=== PATIENT | male | born 1955 | race Caucasian/White ===

== ENCOUNTER → 2020-08-02 | Outpatient (CLI) | payer MEDICARE ==
[~2020-08-02] MED LIST: AMLO10TA7 PO; ASPI-1005 PO; ATOR40TA71 PO; CLOP75TA14 PO; LISI1TAB51 PO; MELO-108 PO; MONT10TA21 PO; ZOLP10TA6 PO
== END | disposition home or self-care (01) ==
LOC: OIH 10:09
PROVIDERS: ATTEND Nurse Practitioner Adult Health
DX: M48.02 Spinal stenosis, cervical region (principal); M25.78 Osteophyte, vertebrae; R20.0 Anesthesia of skin
CPT/HCPCS: 72040

== ENCOUNTER → 2020-10-28 | Outpatient (CLI) | payer MEDICARE ==
[~2020-10-28] MED LIST changes: +AMLO-258 PO; -AMLO10TA7 PO
== END | disposition home or self-care (01) ==
LOC: RAH 09:33
PROVIDERS: ATTEND Nurse Practitioner Adult Health
DX: K76.0 Fatty (change of) liver, not elsewhere classified (principal); K76.89 Other specified diseases of liver
CPT/HCPCS: 76700

== ENCOUNTER → 2021-10-26 | Outpatient (CLI) | payer MEDICARE | END | disposition home or self-care (01) | LOC: RAH 13:43 | PROVIDERS: ATTEND Nurse Practitioner Adult Health | DX: Z01.818 Encounter for other preprocedural examination (principal); M47.816 Spondylosis without myelopathy or radiculopathy, lumbar region | CPT/HCPCS: 71046 ==

== ENCOUNTER → 2022-10-03 | Outpatient (CLI) | payer MEDICARE ==
[~2022-10-03] MED LIST changes: +CLOP-31 PO; -CLOP75TA14 PO
== END | disposition home or self-care (01) ==
LOC: RAH 09:10
PROVIDERS: ATTEND Nurse Practitioner Adult Health
DX: K82.4 Cholesterolosis of gallbladder (principal); K76.89 Other specified diseases of liver; K76.0 Fatty (change of) liver, not elsewhere classified; N28.1 Cyst of kidney, acquired; R10.84 Generalized abdominal pain; R10.2 Pelvic and perineal pain
CPT/HCPCS: 76700; 76856

== ENCOUNTER 2023-07-08 19:23 | Observation (INO) | payer MEDICARE ==
[~2023-07-08] VITALS: Ht 177.8 cm; Wt 106.9 kg
[~2023-07-08 19:23] MED LIST changes: +MONT-46 PO; -MONT10TA21 PO
[2023-07-08] MEDS ORDERED: NITROGLYCERIN 1GM OINT 1 INCH/1GM TD ONE (20:00)
[2023-07-08] MEDS ORDERED: ASPIRIN 325MG TAB PO ONE (20:00)
[2023-07-08 20:26] LABS: BASOPHILS # (AUTO) 0.08 K/uL (0.00-0.20); EOSINOPHILS % (AUTO) 9.7 % (0.0-8.0); HEMATOCRIT 38.9 % (42-54); IMMATURE GRANULOCYTE ABSOLUTE 0.05 K/uL (0-1); LYMPHOCYTES # (AUTO) 1.7 K/uL (1.0-4.8); LYMPHOCYTES % (AUTO) 20.5 % (21.0-51.0); MEAN CORPUSCULAR HEMOGLOBIN 28.6 pg (27.0-33.0); MEAN CORPUSCULAR HGB CONC 32.9 g/dL (32.0-36.0); MONOCYTES # (AUTO) 0.7 K/uL (0.1-1.0); NEUTROPHILS % (AUTO) 60.2 % (40.0-77.0); PLATELET COUNT (AUTO) 217 K/uL (130-400); RED BLOOD CELL COUNT(AUTO) 4.47 MIL/uL (4.50-6.20); RED CELL DISTRIBUTION WIDTH 13.2 % (11.0-15.5); WHITE BLOOD COUNT (AUTO) 8.2 K/uL (4.8-10.8)
[2023-07-08 20:33] LABS: CREATININE 1.1 mg/dL (0.5-1.5); POTASSIUM 3.3 mmol/L (3.5-5.1)
[2023-07-08 20:38] LABS: ALBUMIN 3.4 g/dL (3.5-5.0); BILIRUBIN,TOTAL 0.3 mg/dL (0.2-1.0); TOTAL PROTEIN, SERUM 6.9 g/dL (6.0-8.3)
[2023-07-08] MEDS ORDERED: POTASSIUM BICARB/CIT AC 25 MEQ TABLET.EFF PO ONE (21:30)
[2023-07-08] MEDS ORDERED: MORPHINE 2 MG SYG IV PRN (22:00)
[2023-07-08] MEDS ORDERED: ONDANSETRON 4MG INJ IV PRN (22:00)
[2023-07-08] MEDS ORDERED: ACETAMINOPHEN 325 MG TAB PO PRN ×2 (22:00)
[2023-07-08 22:10] LABS: CHOLESTEROL 139 mg/dL (<200); HDL CHOLESTEROL 38 mg/dL (29-71); LDL DIRECT 73 mg/dL (0-99); TRIGLYCERIDES 96 mg/dL (30-200)
[2023-07-08] MEDS ORDERED: POTASSIUM CHLORIDE 10MEQ/100ML 100 ML IV PRN (22:30)
[2023-07-08] MEDS: NITROGLYCERIN 1GM OINT 1 INCH/1GM TD SCH (22:30)
[2023-07-08 22:37] LABS: HEMOGLOBIN A1C 5.6 % (4.0-6.0)
[2023-07-08] MEDS: LACTATED RINGERS 1000ML 1,000 ML IV SCH (22:56)
[2023-07-09] VITALS (7 sets, daily range): BP systolic 99–140; BP diastolic 64–81; PULSE 64–91; RESP 16–20; O2SAT 97
[2023-07-09] MEDS ORDERED: HYDR12.54 PO (00:20)
[2023-07-09] MEDS ORDERED: TAMS-1 PO (00:20)
[2023-07-09] MEDS ORDERED: LISI20TA24 PO (00:20)
[2023-07-09] MEDS ORDERED: METO50TA18 PO (00:20)
[2023-07-09 02:24] LABS: BASOPHILS # (AUTO) 0.08 K/uL (0.00-0.20); EOSINOPHILS # (AUTO) 0.74 K/uL (0.00-0.70); HEMATOCRIT 35.5 % (42-54); IMMATURE GRANULOCYTE ABSOLUTE 0.05 K/uL (0-1); LYMPHOCYTES % (AUTO) 24.9 % (21.0-51.0); MEAN CORPUSCULAR HEMOGLOBIN 28.9 pg (27.0-33.0); MEAN CORPUSCULAR HGB CONC 33.2 g/dL (32.0-36.0); MEAN CORPUSCULAR VOLUME 86.8 fL (79-99); MONOCYTES # (AUTO) 0.7 K/uL (0.1-1.0); MONOCYTES % (AUTO) 8.3 % (3.0-13.0); NEUTROPHILS # (AUTO) 4.6 K/uL (1.8-7.7); NEUTROPHILS % (AUTO) 56.2 % (40.0-77.0); PLATELET COUNT (AUTO) 217 K/uL (130-400); RED BLOOD CELL COUNT(AUTO) 4.09 MIL/uL (4.50-6.20); RED CELL DISTRIBUTION WIDTH 13.2 % (11.0-15.5); WHITE BLOOD COUNT (AUTO) 8.2 K/uL (4.8-10.8)
[2023-07-09 02:45] LABS: CREATININE 1.2 mg/dL (0.5-1.5); POTASSIUM 3.2 mmol/L (3.5-5.1)
[2023-07-09 02:53] LABS: MAGNESIUM 1.8 mg/dL (1.80-2.40)
[2023-07-09] MEDS: NITROGLYCERIN 1GM OINT 1 INCH/1GM TD SCH ×2 (05:40→14:30)
[2023-07-09] MEDS: LACTATED RINGERS 1000ML 1,000 ML IV SCH (06:00)
[2023-07-09] MEDS ORDERED: REGADENOSON 0.4 MG/5 ML PF SYG IVP SCH (07:18)
[2023-07-09] MEDS ORDERED: IBUP-2077 PO (07:27)
[2023-07-09] MEDS ORDERED: ACET-2123 PO (07:27)
[2023-07-09] MEDS ORDERED: IBUPROFEN 800 MG TAB PO SCH (07:30)
[2023-07-09] MEDS ORDERED: ACETAMINOPHEN 500 MG TABLET PO PRN (07:30)
[2023-07-09] MEDS ORDERED: POTASSIUM CHLORIDE 10% ELIXIR 20 MEQ/15 ML UDCUP PO PRN (08:30)
[2023-07-09] MEDS ORDERED: ASPIRIN 81 MG EC TAB PO SCH (09:00)
[2023-07-09] MEDS ORDERED: FAMOTIDINE 20MG VIAL IV SCH (09:00)
[2023-07-09] MEDS ORDERED: METOPROLOL TARTRATE 50 MG TAB PO SCH (09:00)
[2023-07-09] MEDS ORDERED: METOPROLOL TARTRATE 25 MG TAB PO SCH (09:00)
[2023-07-09] MEDS: KCL 20 MEQ ERTAB PO PRN ×2 (12:00→16:43)
[2023-07-09] MEDS ORDERED: PHARMACY COMMUNICATION MISC STA (15:53)
[2023-07-09] MEDS ORDERED: COMPOUND PO MISCELLANEOUS 1 EACH MISC MISC PRN (16:00)
[2023-07-09] MEDS ORDERED: LIDO 2% VISC 30ML+MAG/AL/SIMETH 30ML+DICYCLOMINE 20MG 10ML PO PRN ×3 (16:00)
[2023-07-09] MEDS ORDERED: [UNRECOGNIZED DRUG - OTHER] PO PRN ×3 (16:30)
[2023-07-09] MEDS ORDERED: ATORVASTATIN 20 MG TABLET PO SCH (21:00)
== END 2023-07-09 17:56 | disposition home or self-care (01) ==
LOC: EDH 19:23 → INTOOBSV 21:50 → EDHIP 21:50 → 2DH 23:50
PROVIDERS: ADMIT Hospitalist; ATTEND Hospitalist
DX: R07.89 Other chest pain (principal); I25.10 Atherosclerotic heart disease of native coronary artery without angina pectoris; I10 Essential (primary) hypertension; E78.5 Hyperlipidemia, unspecified; Z85.46 Personal history of malignant neoplasm of prostate; E87.6 Hypokalemia; Z79.899 Other long term (current) drug therapy; Z95.5 Presence of coronary angioplasty implant and graft; Z98.1 Arthrodesis status
CPT/HCPCS: 96361 ×2; 99285; 83036; 83735 ×2; 84484 ×3; 80061; 80053; 85025 ×2; 36415 ×2; 71045; 93005 ×2; 96365; 96375; 80048; 93017; 78452; G0378 ×6; J7120; J3490; J2785; J3480; A9500 ×2; 96374

== ENCOUNTER → 2023-10-04 | Outpatient (CLI) | payer MEDICARE ==
[~2023-10-04] MED LIST changes: -AMLO-258 PO; -ASPI-1005 PO; -CLOP-31 PO; +HYDR12.54 PO; -LISI1TAB51 PO; +LISI20TA24 PO; -MELO-108 PO; +METO50TA18 PO; +TAMS-1 PO; -ZOLP10TA6 PO
== END | disposition home or self-care (01) ==
LOC: RAH 07:31
PROVIDERS: ATTEND Internal Medicine Gastroenterology
DX: R10.11 Right upper quadrant pain (principal)
CPT/HCPCS: 78227; A9537

== ENCOUNTER 2023-12-06 08:12 | Day surgery (SDC) | payer MEDICARE ==
[2023-12-05 14:21] LABS: BASOPHILS # (AUTO) 0.06 K/uL (0.00-0.20); BASOPHILS % (AUTO) 0.9 % (0.0-5.0); EOSINOPHILS # (AUTO) 0.34 K/uL (0.00-0.70); EOSINOPHILS % (AUTO) 5.2 % (0.0-8.0); HEMATOCRIT 42.8 % (42-54); IMMATURE GRANULOCYTE ABSOLUTE 0.01 K/uL (0-1); LYMPHOCYTES # (AUTO) 1.5 K/uL (1.0-4.8); LYMPHOCYTES % (AUTO) 22.9 % (21.0-51.0); MEAN CORPUSCULAR HEMOGLOBIN 29.4 pg (27.0-33.0); MEAN CORPUSCULAR HGB CONC 32.2 g/dL (32.0-36.0); MEAN CORPUSCULAR VOLUME 91.3 fL (79-99); MONOCYTES # (AUTO) 0.5 K/uL (0.1-1.0); MONOCYTES % (AUTO) 7.6 % (3.0-13.0); NEUTROPHILS # (AUTO) 4.2 K/uL (1.8-7.7); NEUTROPHILS % (AUTO) 63.2 % (40.0-77.0); PLATELET COUNT (AUTO) 221 K/uL (130-400); RED BLOOD CELL COUNT(AUTO) 4.69 MIL/uL (4.50-6.20); RED CELL DISTRIBUTION WIDTH 13.2 % (11.0-15.5); WHITE BLOOD COUNT (AUTO) 6.6 K/uL (4.8-10.8)
[2023-12-05 14:29] VITALS: BP 122/77; PULSE 97; RESP 18
[2023-12-05 14:32] LABS: CREATININE 0.9 mg/dL (0.5-1.5); INR < 0.93 (0.85-1.15); POTASSIUM 3.9 mmol/L (3.5-5.1); PROTHROMBIN TIME 10.6 SEC (9.6-11.6)
[2023-12-05 14:33] LABS: PARTIAL THROMBOPLASTIN TIME 28.7 SEC (26.3-35.5)
[2023-12-05 15:00] LABS: B-TYPE NATRIURETIC PEPTIDE 9 pg/mL (0-100)
[2023-12-06] VITALS (9 sets, daily range): BP systolic 102–149; BP diastolic 58–83; PULSE 61–81; RESP 11–16
[~2023-12-06] VITALS: Ht 177.8 cm; Wt 108.5 kg
[~2023-12-06 08:12] MED LIST changes: +ESOM40CA54 PO
[2023-12-06] MEDS ORDERED: 0.9%NACL 1000ML 1,000 ML IV ONE (08:50)
[2023-12-06] MEDS ORDERED: LIDOCAINE HCL 400MG/20ML VIAL ONE (10:44)
[2023-12-06] MEDS ORDERED: IOHEXOL 350 MG/ML 100ML INFUS..BTL IV ONE (10:45)
[2023-12-06] MEDS ORDERED: HEPARIN 10,000 UNIT/10ML (1,000 UNIT/ML) VIAL ONE (10:45)
[2023-12-06] MEDS ORDERED: FENTANYL CITRATE PF 50 MCG/1 ML 2ML VIAL ONE (10:45)
[2023-12-06] MEDS ORDERED: IOHEXOL-350 50ML VIAL IV ONE (10:45)
[2023-12-06] MEDS ORDERED: MIDAZOLAM HCL 1 MG/ML 2ML VIAL ONE (10:45)
[2023-12-06] MEDS ORDERED: 0.9%NACL 10ML VIAL IVP SCH (12:00)
== END 2023-12-06 14:45 | disposition home or self-care (01) ==
LOC: DAH 08:12
PROVIDERS: ATTEND Internal Medicine Interventional Cardiology
DX: I25.10 Atherosclerotic heart disease of native coronary artery without angina pectoris (principal); I10 Essential (primary) hypertension; E78.2 Mixed hyperlipidemia; Z79.899 Other long term (current) drug therapy; F17.210 Nicotine dependence, cigarettes, uncomplicated; Z98.890 Other specified postprocedural states; Z79.01 Long term (current) use of anticoagulants
CPT/HCPCS: 80048; 83880; 85025; 85610; 85730; 36415; 93005; 93458; A4223 ×3; Q9965; C1769; C1894 ×3; C1760; J3010; J3490; J7030; J1644 ×2; J2250; Q9967 ×2; A4215; A4222; A4221; A4663; A4216; A4606; 99156; 99157

== ENCOUNTER → 2023-12-11 | Outpatient (CLI) | payer MEDICARE ==
[2023-12-11 21:35] VITALS: PULSE 92; RESP 12
[2023-12-11 22:17] VITALS: PULSE 77; RESP 12
[2023-12-11 22:29] VITALS: PULSE 74; RESP 12
[2023-12-11 23:01] VITALS: PULSE 73; RESP 12
[2023-12-11 23:36] VITALS: PULSE 71; RESP 12
[2023-12-12] VITALS: PULSE 76; RESP 14
[2023-12-12 00:31] VITALS: PULSE 75; RESP 12
== END | disposition home or self-care (01) ==
LOC: SLP 20:05
PROVIDERS: ATTEND Nurse Practitioner Adult Health
DX: G47.30 Sleep apnea, unspecified (principal)
CPT/HCPCS: 95810

== ENCOUNTER → 2024-04-10 | Outpatient (CLI) | payer MEDICARE ==
[~2024-04-10] MED LIST changes: +ASPI-1005 PO; +CLOP-31 PO; +FURO20TA6 PO; -HYDR12.54 PO; -LISI20TA24 PO; +LOSA-417 PO; -METO50TA18 PO; +METO50TA9 PO; +NITR0.4T50 SL
== END | disposition home or self-care (01) ==
LOC: SHCH 10:49
PROVIDERS: ATTEND Internal Medicine Cardiovascular Disease
DX: I08.0 Rheumatic disorders of both mitral and aortic valves (principal); I21.01 ST elevation (STEMI) myocardial infarction involving left main coronary artery; I11.9 Hypertensive heart disease without heart failure; E78.5 Hyperlipidemia, unspecified
CPT/HCPCS: 93306

== ENCOUNTER → 2024-10-14 | Outpatient (CLI) | payer MEDICARE ==
[~2024-10-14] MED LIST changes: -ESOM40CA54 PO; +ESOM40CA66 PO
--- NOTE | 2024-10-14 18:28 | HMCSR ---
APPROVED REPORT Bilateral Lower Extremity Venous Study for DVT., Venous Competence.Study performed with patient in up right position or in reverse Trendelenburg. Vein Imaging CFV (R): Normal flow, augmentation and compression. No evidence of DVT, Diameter SFJ (R): Normal flow, augmentation and compression. No evidence of DVT. FEM (R): Normal flow, augmentation and compression. No evidence of DVT, 394 ms of DVR. POP (R): Normal flow, augmentation and compression. No evidence of DVT. DFV (R): Normal flow, augmentation and compression. No evidence of DVT. PTV (R): Normal flow, augmentation and compression. No evidence of DVT. Peroneals (R): Normal flow, augmentation and compression. No evidence of DVT. GAS (R): Normal flow, augmentation and compression. No evidence of DVT. CFV (L): Normal flow, augmen tation and compression. No evidence of DVT, Diameter 15.5 mm, 333 ms of DVR. SFJ (L): Normal flow, augmentation and compression. No evidence of DVT. FEM (L): Normal flow, augmentation and compression. No evidence of DVT. POP (L): Normal flow, augmentation and compression. No evidence of DVT. DFV (L): Normal flow, augmentation and compression. No evidence of DVT. PTV (L): Normal flow, augmentation and compression. No evidence of DVT. Peroneals (L): Normal flow, augmentation and compression. No evidence of DVT. GAS (L): Normal flow, augmentation and compression. No evidence of DVT. Technologist Impression The deep veins of the bilateral lower extremities appear patent and compressible without evidence of thrombus. There is evidence of significant superficial venous insufficiency in the bilateral greater saphenous veins and the left smaller saphenous vein. RGSV Junction 3.5 mm 250 ms Mid thigh 3.2 mm 206 ms Knee 3.2 mm 0 ms Mid- calf 2.0 mm 511 ms RSSV Prox 1.6 mm 0 ms Mid 2.0 mm 0 ms LGSV Junction 3.8 mm 694 ms Mid thigh 4.0 mm 0 ms Knee 1.6 mm 411 ms Mid-calf 2.3 mm 1911 ms LSSV Prox 2.3 mm 0 ms Mid 2.8 mm 5408 ms Conclusion Severe superficial venous reflux of bilateral GSV's and LSSV No DVT Conclusion Severe superficial venous reflux of bilateral GSV's and LSSV No DVT
== END | disposition home or self-care (01) ==
LOC: SHCH 08:42
PROVIDERS: ATTEND Internal Medicine Cardiovascular Disease
DX: I87.2 Venous insufficiency (chronic) (peripheral) (principal); I87.1 Compression of vein
CPT/HCPCS: 93970